=== PATIENT | female | born 1955 | race Caucasian/White ===

== ENCOUNTER 2016-10-26 10:18 | Day surgery (SDC) | payer OTHER ==
[~2016-10-26 10:18] MED LIST: RINGERS SOLUTION,LACTATED 1,000 ML IV PRN
--- OUTSIDE RECORDS SUMMARY | 2016-10-26 10:22 | XMS REPORT | CCD ---
:1955 Author Name CADEN RYAN Address [address] [place] [address] Care Team Providers Name Role Phone JON [employer] ARCHITECTPETER Sparks Attending Physician Unavailable MIGUEL ERIC Rounding (Secondary) Physician Unavailable Allergies Unknown or Not Available. Active Medications Unknown or Not Available. Problems Unknown or Not Available. Procedures Unknown or Not Available. Results Unknown or Not Available. Encounters Encounter Diagnosis Diagnosis Code Start Date Headache R51 10/12/2016 Function Status Unknown or Not Available. History of Immunizations Unknown or Not Available. Plan of Treatment Unknown or Not Available. Social History Smoking Status Code Start Date End Date Never smoker [id number] Vital Signs Unknown or Not Available. Function Status Unknown or Not Available. Goals Unknown or Not Available. ASSESSMENTS Unknown or Not Available. Health Concerns Section Unknown or Not Available.
--- OUTSIDE RECORDS SUMMARY | 2016-10-26 10:22 | XMS REPORT | Continuity of Care Document ---
:1955 Author Organization [facility] ([facility]) Address [place] [address] Phone [phone] Care Team Providers Name Role Phone [place]ueblo[place]my epstein Brendan Primary Care Provider [phone] Source Comments This disclosure is being made pursuant to the Care Everywhere program, applicable federal and state laws, and may not contain all informaitonavailable regarding this patient.[facility] ([facility]) Active Allergies and Adverse Reactions Allergen Noted Date Severity Reactions Comments Aspirin 09/26/2011 Urticaria (Hives) Choline,Magnesium Salicylate 09/26/2011 OTHER Iodinated Contrast Media - 06/02/2011 Urticaria (Hives) Oral And Iv Dye Nsaids (Non-Steroidal 06/02/2011 OTHER Patient not sure Anti-Inflammatory Drug) Other Agent 09/26/2011 OTHER mosquitos Current Medications Prescription Sig. Disp. Refills Start Date End Date Status phenytoin (DILANTIN Take 100 mg by Active EXTENDED) 100 mg ER mouth 3 times capsule daily. fluticasone (FLONASE) 50 use 2 Sprays into Active mcg/Actuation nasal the nose daily. spray Phenobarbital 32.4 mg Take 32.4 mg by Active Tab mouth. OTHER 5 mL 2 times daily. Active hydroxychloroquine Take 2 Tabs by 60 Tab 11 12/17/2012 Active (PLAQUENIL) 200 mg mouth daily. tablet Indications: RHEUMATOID ARTHRITIS, SYSTEMIC LUPUS ERYTHEMATOSUS VITAMIN D2 50,000 unit 5 03/24/2015 Active capsule MONTELUKAST 10 mg tablet 11 03/24/2015 Active PATANASE 0.6 % nasal 11 03/24/2015 Active spray Active Problems Problem Noted Date Aneurysm 10/11/2011 SLE (systemic lupus erythematosus) 06/02/2011 Overview: Seizures at age 15. Thrombocytopenia in 1983. Polyarticular arthritis in 2010. Low WBC on several occassions. 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 RF/CCP positive. 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 Thrombocytopenia 06/02/2011 Overview: Admitted to the [facility] because of low platelets in 1983. Anti-epileptic medication Mesentoin suspected as a possible cause. Seizures 06/02/2011 Overview: First at age 15. Last in 2003. On Dilantin and phenobarbital. Social History Tobacco Use Types Packs/Day Years Used Date Never Smoker Smokeless Tobacco: Never Used Alcohol Use Drinks/Week oz/Week Comments No Last Filed Vital Signs Vital Sign Reading Time Taken Blood Pressure 132/92 04/05/2015 1:16 PM CDT Pulse 93 04/05/2015 1:16 PM CDT Temperature 36 C (96.8 F) 04/05/2015 1:16 PM CDT Respiratory Rate 16 04/05/2015 1:16 PM CDT Height 1.575 m (5' 2") 04/05/2015 1:16 PM CDT Weight 80.922 kg (178 lb 6.4 oz) 04/05/2015 1:16 PM CDT Body Mass Index 32.62 04/05/2015 1:16 PM CDT Oxygen Saturation 98% 04/05/2015 1:16 PM CDT Plan of Care Health Maintenance Due Date Last Done Comments Hepatitis B Vaccine (1 of 3 - Primary Series) 1955 Tdap Vaccine 1967 Lipid Disorder Screening 1974 MMR Vaccine 1974 Td Vaccine 1974 Cervical Cancer Screening 1986 Mammogram 1996 Colonoscopy 2006 Influenza Vaccine: Seasonal (#1) 03/06/2016 Zoster Vaccine 2016 HCV Screening Completed 06/02/2011 Results from Last 3 Months Not on file
[2016-10-26] MEDS ORDERED: RINGERS SOLUTION,LACTATED 1,000 ML IV ONE ×2 (11:00→12:18)
[2016-10-26] MEDS ORDERED: LIDOCAINE HCL/EPINEPHRINE 50 ML VIAL IJ ONE ×2 (12:18)
[2016-10-26] MEDS ORDERED: MUPIROCIN 22 APPL TUBE TP ONE (12:18)
[2016-10-26 14:08] VITALS: BP 123/85
== END 2016-10-26 10:19 | disposition home or self-care (01) ==
LOC: AMB 10:18
PROVIDERS: ATTEND Allergy & Immunology
PROC: 03BT3ZX Excision of Left Temporal Artery, Percutaneous Approach, Diagnostic (ICD-10-PCS; principal; 2016-10-26 13:40)
DX: R51 Headache (principal); R70.0 Elevated erythrocyte sedimentation rate; J45.909 Unspecified asthma, uncomplicated; G40.909 Epilepsy, unspecified, not intractable, without status epilepticus; Z68.33 Body mass index [BMI] 33.0-33.9, adult